=== PATIENT | male | born 1985 | race Hispanic/Latino ===

== ENCOUNTER 2022-04-01 07:17 | Emergency (ER) | payer SELFPAY ==
[2022-04-01 07:20] VITALS: BP 134/95; PULSE 75; RESP 17; TEMP 36.9; O2SAT 98; BMI 29.2
--- NOTE | 2022-04-01 08:01 | EDS_ITS ---
HPI History of Present Illness Chief Complaint: Other, Pain/Inj Informant: patient Onset/Context/Timing Onset: Days (3-4) Context: Gradual Onset Timing: Continuous Quality: Sharp Location: Right wrist, right elbow, bilateral knees, bilateral ankles Worsened by: Nothing Relieved by: Nothing Narrative Narrative: Patient presents with joint inflammation that has been getting worse over the past 3 to 4 days. Patient states the pain is mainly over the right wrist, right elbow, bilateral knees, bilateral ankles. Patient describes the pain as sharp. Patient states pain has been constant. Patient states nothing seems to help with the pain. Nothing seems to make the pain any worse. Patient denies any trauma or injury. Patient denies any fevers or chills. Patient denies any prior history of inflammatory disorder. PFSH PFSH Medical History no medical history no medical history Home Medications metformin 500 mg tablet 500 mg PO BID #60 tabs 04/01/22 [Rx Last Taken Unknown] prednisone 20 mg tablet 40 mg PO DAILY #10 TABLETS 04/01/22 [Rx Last Taken Unknown] Allergy/AdvReac Type Severity Reaction Status Date / Time No Known Allergies Allergy Verified 04/01/22 07:19 Surgical History no surgical history no surgical history Social History Smoking Status: Never smoker ROS ROS ED Constitutional Constitutional ED: Denies chills or fever(s) Eyes Eyes: Denies blurry vision or change in vision ENT ENT ED: Denies rhinorrhea or sore throat Cardiovascular Cardiovascular: Denies chest pain or palpitations Respiratory/Chest Respiratory/Chest: Denies cough or dyspnea Gastrointestinal Gastrointestinal: Denies nausea or vomiting Genitourinary Genitourinary ED: Denies dysuria or hematuria Musculoskeletal Musculoskeletal: Reports arthralgias; Denies back pain or neck pain Integumentary Denies abscess or rash Neurologic Neurologic: Denies headache(s) or weakness Allergic/Immunologic Allergic/Immunologic ED: Denies mouth swelling or urticaria EXAM Physical Exam Const Vital Signs: 04/01/22 07:20 04/01/22 07:43 04/01/22 11:00 Temperature 98.4 F Temperature Source Temporal Pulse Rate 75 62 Respiratory Rate 17 15 Respiratory Effort Normal Non-Labored Respiratory Pattern Normal Blood Pressure 134/95 H 138/79 H Blood Pressure Mean 108 Pulse Ox 98 98 Oxygen Delivery Method Room Air Positive well nourished and well developed General Appearance ED: well developed and NAD HEENT Reports moist mucous membranes Neck supple and no JVD Resp normal respiratory effort and clear to auscultation bilaterally Cardio regular rate, regular rhythm and no murmurs GI normal to inspection, nondistended, normoactive bowel sounds and non-tender Palpation: soft Extremity Extremity Narrative: There is tenderness and mild edema over the right wrist, right elbow, bilateral knees, and bilateral ankles. There is no erythema or warmth. There is no pain with short arc range of motion. There is some pain with complete range of motion. There are no deformities noted. Radial and pedal pulses are equal bilaterally. Strength is 5/5 bilaterally in the upper and lower extremities. There are no sensory deficits noted. Neuro oriented x3, CN's II-XII intact bilaterally and no sensory deficits noted Sensorium / Orientation: alert Motor Exam: strength 5/5 throughout Psych mental status grossly normal Skin no rashes or lesions noted MDM MDM MDM Narrative Medical decision making narrative: Differential diagnosis includes inflammatory arthritis, infection, crystal induced arthritis, and osteoarthritis. CBC will be obtained to assess for leukocytosis and anemia. Basic metabolic profile will be obtained to assess for electrolyte abnormality and renal function. Sed rate and CRP will be obtained to assess for inflammatory markers. Uric acid will be obtained to assess for possible gout. Lab Data Lab results narrative: CBC was reviewed and was within normal limits. Basic metabolic profile showed a slightly elevated creatinine of 1.52 and a BUN of 36. There are no prior labs for comparison. Glucose was elevated at 372. Patient does not report a history of diabetes. Sed rate was elevated at 51. CRP was elevated at 82.6. Uric acid was also elevated at 9.2. Labs: Laboratory Results - last 24 hr 04/01/22 04/01/22 04/01/22 08:18 08:18 08:18 WBC 10.6 RBC 4.61 Hgb 13.0 Hct 37.0 L MCV 80.3 MCH 28.2 MCHC 35.1 RDW Std Deviation 35.7 RDW Coeff of Lizbet 12.3 Plt Count 361 MPV 9.4 Immature Gran % (Auto) 0.200 Neut % (Auto) 70.0 Lymph % (Auto) 20.6 Schley % (Auto) 6.8 Eos % (Auto) 2.0 Baso % (Auto) 0.4 Absolute Neuts (auto) 7.4 Absolute Lymphs (auto) 2.19 Nucleated RBC % 0 ESR 51 H Sodium 134 L Potassium 3.4 L Chloride 94 L Carbon Dioxide 30.0 Anion Gap 10 BUN 36 H Creatinine 1.52 H Estim Creat Clear Calc 47.06 Est GFR (MDRD) Af Amer 67 Est GFR (MDRD) Non-Af 55 L BUN/Creatinine Ratio 23.7 H Glucose 372 H Uric Acid 9.2 H Calcium 8.7 C-React Prot Ext Range 04/01/22 08:18 WBC RBC Hgb Hct MCV MCH MCHC RDW Std Deviation RDW Coeff of Lizbet Plt Count MPV Immature Gran % (Auto) Neut % (Auto) Lymph % (Auto) Schley % (Auto) Eos % (Auto) Baso % (Auto) Absolute Neuts (auto) Absolute Lymphs (auto) Nucleated RBC % ESR Sodium Potassium Chloride Carbon Dioxide Anion Gap BUN Creatinine Estim Creat Clear Calc Est GFR (MDRD) Af Amer Est GFR (MDRD) Non-Af BUN/Creatinine Ratio Glucose Uric Acid Calcium C-React Prot Ext Range 82.60 H Treatment and Re-Evaluation Narrative: Patient was given IV fluids and Toradol. Patient is feeling somewhat better on reevaluation. Patient was advised of his findings. Patient will be started on metformin and prednisone. Patient was given referral for primary care physician to follow-up in 3 to 5 days. Patient was instructed return if worse in any way. Patient understood and was agreeable with the plan. All questions were answered. Discharge Plan Triage Chief Complaint: Other, Pain/Inj ED Provider: Caesar Myers Dx/Rx/DC Orders Clinical Impression: Diabetes, Gouty arthritis Instructions: ED Diabetes- Overview, ED Gout, ED Gout Diet Prescriptions: New metformin 500 mg tablet 500 mg PO BID Qty: 60 0RF prednisone 20 mg tablet 40 mg PO DAILY Qty: 10 0RF Primary Care Provider: Care Physician,No Primary Referrals: Dacia Reaves [Non-Staff] - 3-5 Days Care Physician,No Primary [Primary Care Provider] - Print Language: Syriac Disposition Disposition: Home, Self Care Discharge Date/Time: 04/01/22 11:02
[2022-04-01 08:25] LABS: Absolute Lymphocyte Count 2.19 X10^3/uL (0.83-4.51); Absolute Neutrophil Count 7.4 X10^3/uL (2.0-7.7); Basophil# 0.04 X10^3/uL; Basophil% 0.4 % (0-1); Eosinophil# 0.21 X10^3/uL; Lymphocyte # 2.19 X10^3/ul (0.83-4.51); Lymphocyte % 20.6 % (19-41); Mean Corp Hgb Conc 35.1 g/dL (32-36); Mean Corpuscular Hgb 28.2 pg (27.0-32.0); Mean Corpuscular Volume 80.3 fL (80-94); Mean Platelet Vol. 9.4 fl (6.2-12.0); Monocyte# 0.72 X10^3/uL; Monocyte% 6.8 % (0-10); NRBC Flagged by Analyzer 0 % (0-5); Neutrophil # 7.43 X10^3/uL (2.7-7.7); Platelet Count 361 K/mm3 (150-450); RBC Distribution Width CV 12.3 % (11.6-14.6); RBC Distribution Width SD 35.7 fl (35.1-43.9); Red Blood Count 4.61 M/mm3 (4.6-6.2); White Blood Count 10.6 K/mm3 (4.4-11.0)
[2022-04-01] MEDS: 0.9% Normal Saline 1,000 ML 1000 ML IV (08:25)
[2022-04-01] MEDS: Ketorolac 30 MG/ML Syringe IV (08:25)
[2022-04-01 08:39] LABS: Anion Gap 10 (5-15); BUN 36 mg/dL (7-18); BUN/Creat Ratio 23.7 RATIO (10-20); Calcium,Total 8.7 mg/dL (8.5-10.1); Chloride 94 mmol/L (98-107); Creatinine, Serum 1.52 mg/dL (0.70-1.30); EST Glomerular Filtration Rate 55 mL/min (>60); Est Glom Filt Rate - Afr Amer 67 mL/min (>60); Estimated Creatinine Clearance 47.06 ml/min; Glucose 372 mg/dL (74-106); Potassium 3.4 mmol/L (3.5-5.1); Sodium Level 134 mmol/L (136-145); Uric Acid 9.2 mg/dL (3.5-7.2)
[2022-04-01 09:21] LABS: Erythrocyte Sedimentation Rate 51 mm/hr (0-20)
[2022-04-01 11:00] VITALS: BP 138/79; PULSE 62; RESP 15; O2SAT 98
== END 2022-04-01 11:02 | disposition home or self-care (01) ==
PROVIDERS: Emergency Provider Emergency Medicine; Visit Provider Emergency Medicine
DX: E11.9 Type 2 diabetes mellitus without complications (principal); M10.9 Gout, unspecified; Z79.84 Long term (current) use of oral hypoglycemic drugs; Z79.52 Long term (current) use of systemic steroids
CPT/HCPCS: 80048; 84550; 85025; 85652; 86140; 96361; 96374; 99283; J7030; A4216